=== PATIENT | male | born 1970 | race African-American/Black ===

== ENCOUNTER 2019-07-10 22:12 | Emergency (ER) | payer OTHER ==
[2019-07-10 22:22] VITALS: TEMP 97.9; BMI 36.2
[2019-07-10] MEDS ORDERED: IBUPROFEN 600 MG TABLET (FP) PO ONE (23:45)
[2019-07-11] MEDS ORDERED: IBUPROFEN 600 MG TABLET (FP) PO ONE (00:15)
[2019-07-11] MEDS ORDERED: SULFAMETHOXAZOLE/TRIMETHOPRIM 800MG/160MG D.S. TABLET PO ONE (00:49)
--- NOTE | 2019-07-11 00:56 | PDOC ---
History of Present Illness - General Chief Complaint: Edema Stated Complaint: LEFT FOOT LACERATION Time Seen by Provider: 07/10/19 23:38 History Source: Patient Exam Limitations: No Limitations Past History - Past Medical History Allergies/Adverse Reactions: Allergies Allergy/AdvReac Type Severity Reaction Status Date / Time No Known Allergies Allergy Verified 07/10/19 22:21 Home Medications: Ambulatory Orders Sulfamethoxazole/Trimethoprim [Bactrim Ds -] 1 tab PO BID #13 tablet 07/11/19 COPD: No Other medical history: MRSA 2002 - Immunization History Immunization Up to Date: Yes - Psycho Social/Smoking Cessation Hx Smoking History: Current every day smoker Have you smoked in the past 12 months: No Information on smoking cessation initiated: No Hx Alcohol Use: Yes (VODKA) Drug/Substance Use Hx: Yes (MARIJUANA, ECTASY) *Physical Exam - Vital Signs Last Vital Signs Temp Pulse Resp BP Pulse Ox 97.9 F 114 H 20 127/81 96 07/10/19 22:15 07/10/19 22:15 07/10/19 22:15 07/10/19 22:15 07/10/19 22:15 - Physical Exam General Appearance: No: Apparent Distress Extremity: positive: Other (+L heel swelling, superficial healed 1 cm cut along L heel, no drainage, no erythema, no streaking, no crepitus, no abscess) Integumentary: positive: Normal Color. negative: Erythema, Ecchymosis, Bruising Neurologic: positive: Alert ED Treatment Course - RADIOLOGY Radiology Studies Ordered: Category Date Time Status FOOT-LEFT [RAD] Stat Radiology 07/10/19 23:45 Taken - Medications Given in the ED: ED Medications Discontinued Medications Generic Name Dose Route Start Last Admin Trade Name Freq PRN Reason Stop Dose Admin Ibuprofen 600 mg 07/10/19 23:45 07/11/19 00:38 Motrin - PO 07/10/19 23:46 600 mg ONCE ONE Administration Medical Decision Making - Medical Decision Making 48 y/o M with no sig pmh presents with swelling of L heel over the past week. 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 Patient states he was wearing shoes. Denies fever, discharge, changes in skin color. Mentions hx of MRSA infection in the past L foot xray - ?circular density noted along L heel; ?FB Xray sent to imaging transmission specialist but it was read as negative Will start on Bactrim and refer to podiatry 07/11/19 00:52 Discharge - Discharge Information Problems reviewed: Yes Clinical Impression/Diagnosis: Foot swelling Condition: Stable Disposition: HOME - Admission No - Additional Discharge Information Prescriptions: Sulfamethoxazole/Trimethoprim [Bactrim Ds -] 1 tab PO BID #13 tablet Prescription Drug Monitoring Program (I-STOP) results: I-STOP not reviewed - Follow up/Referral Referrals: Dewey Pina MD [Staff Physician] - Call tomorrow Colin Tobin MD [Staff Physician] - Call tomorrow - Patient Discharge Instructions Additional Instructions: Thank you for choosing [facility]. It was a pleasure taking care of you. You may take Motrin 600 mg every 6 hours by mouth as needed for mild to moderate pain. Take Motrin with food. You were also started on antibiotics You were referred to registration officer/orthopedic doctor for further evaluation Return to the Emergency Department if your symptoms worsen or persist, you have fever, redness, purulent drainage, streaking or other concerning symptoms. - Post Discharge Activity
[2019-07-11] MEDS ORDERED: SULFAMETHOXAZOLE/TRIMETHOPRIM 800MG/160MG D.S. TABLET ONE (01:11)
[2019-07-11 01:27] VITALS: BP 131/83; PULSE 102
== END 2019-07-11 01:20 | disposition home or self-care (01) ==
LOC: JER 22:12
DX: S99.822A Other specified injuries of left foot, initial encounter (principal); M79.89 Other specified soft tissue disorders; X58.XXXA Exposure to other specified factors, initial encounter; Y93.H3 Activity, building and construction; Y92.89 Other specified places as the place of occurrence of the external cause; Y99.8 Other external cause status; Z86.14 Personal history of Methicillin resistant Staphylococcus aureus infection
CPT/HCPCS: 73630-TC-LT; 99282-25

== ENCOUNTER 2020-12-07 21:26 | Emergency (ER) | payer OTHER ==
[2020-12-07 21:34] VITALS: BP 166/96; PULSE 87; TEMP 97.2; BMI 30.7
[2020-12-07] MEDS ORDERED: FLUORESCEIN NA 1 EA STRIP ONE (21:39)
[2020-12-07] MEDS ORDERED: TETRACAINE 0.5% OPHTH SOLN 2 ML BOTTLE ONE ×2 (21:39→22:22)
[2020-12-07] MEDS ORDERED: FLUORESCEIN NA 1 EA STRIP OD ONE (22:03)
[2020-12-07] MEDS ORDERED: TETRACAINE 0.5% OPHTH SOLN 2 ML BOTTLE OU ONE ×2 (22:04→22:19)
[2020-12-07] MEDS ORDERED: ERYTHROMYCIN 0.5% OPHTHALMIC OINTMENT 3.5 GM TUBE OU ONE (22:05)
[2020-12-07] MEDS ORDERED: OCULAR LUBRICANT OPHTHALMIC OINTMENT 7 GM TUBE OU PRN (22:05)
[2020-12-07] MEDS ORDERED: ERYTHROMYCIN 0.5% OPHTHALMIC OINTMENT 3.5 GM TUBE ONE ×2 (22:16→22:29)
== END 2020-12-07 22:33 | disposition home or self-care (01) ==
LOC: JER 21:26
DX: H16.133 Photokeratitis, bilateral (principal)
CPT/HCPCS: 99283-25

== ENCOUNTER 2021-08-05 07:07 | Emergency (ER) | payer OTHER ==
[2021-08-05 07:20] VITALS: BP 144/81; PULSE 88; TEMP 98.4; BMI 32.1
[2021-08-05] MEDS ORDERED: KETOROLAC TROMETHAMINE 60 MG/2 ML VIAL IM ONE (08:23)
[2021-08-05] MEDS ORDERED: CYCLOBENZAPRINE HCL 10 MG TABLET (FP) PO ONE (08:23)
[2021-08-05] MEDS ORDERED: LIDOCAINE 5% TOPICAL PATCH TP ONE (08:23)
[2021-08-05] MEDS ORDERED: LIDOCAINE 5% TOPICAL PATCH ONE ×2 (08:31→08:33)
[2021-08-05] MEDS ORDERED: KETOROLAC TROMETHAMINE 30 MG/1 ML VIAL ONE ×2 (08:32→08:33)
[2021-08-05] MEDS ORDERED: CYCLOBENZAPRINE HCL 10 MG TABLET (FP) ONE ×2 (08:32→08:33)
== END 2021-08-05 08:46 | disposition home or self-care (01) ==
LOC: JERFT 07:07 → JER 07:07 → JERFT 08:46
PROC: 3E0233Z Introduction of Anti-inflammatory into Muscle, Percutaneous Approach (ICD-10-PCS; principal; 2021-08-05)
DX: M54.50 Low back pain, unspecified (principal)
CPT/HCPCS: 72100-TC-FY; 99284-25

== ENCOUNTER 2023-09-12 16:10 | Inpatient (IN) | payer OTHER ==
[2023-09-12 16:57] VITALS: BMI 33.5
[2023-09-12] MEDS ORDERED: guaiFENesin 600 MG TABLET.ER (FP) PO PRN (18:54)
[2023-09-12] MEDS ORDERED: MAGNESIUM HYDROX 2400MG/30ML ORAL SUSPENSION 30 ML CUP PO PRN (18:54)
[2023-09-12] MEDS ORDERED: BENZONATATE 200 MG CAPSULE PO PRN (18:54)
[2023-09-12] MEDS ORDERED: BENZOCAINE/MENTHOL (CHLORASEPTIC ) LOZENGE MM PRN (18:54)
[2023-09-12] MEDS ORDERED: DICYCLOMINE HCL 10 MG CAPSULE PO PRN (18:54)
[2023-09-12] MEDS ORDERED: hydrOXYzine PAMOATE 25 MG CAPSULE (FP) PO PRN (18:54)
[2023-09-12] MEDS ORDERED: POLYETHYLENE GLYCOL (HEALTHYLAX) 3350 17 GM PACKET PO PRN (18:54)
[2023-09-12] MEDS ORDERED: ACETAMINOPHEN 325 MG TABLET (FP) PO PRN (18:54)
[2023-09-12] MEDS ORDERED: NALOXONE HCL 0.4 MG/ML VIAL IM PRN (18:54)
[2023-09-12] MEDS ORDERED: NALOXONE HCL (KLOXXADO) 8 MG SPRAY NS PRN (18:54)
[2023-09-12] MEDS ORDERED: BISMUTH SUBSALICYLATE 524 MG/30 ML PO PRN (18:54)
[2023-09-12] MEDS ORDERED: IBUPROFEN 400 MG TABLET (FP) PO PRN (18:54)
[2023-09-12] MEDS ORDERED: MAG HYDROX/AL HYDROX/SIMETH 30 ML UNIT-DOSE CUP PO PRN (18:54)
[2023-09-12] MEDS ORDERED: LOPERAMIDE HCL 2 MG CAPSULE PO PRN (18:54)
[2023-09-12] MEDS ORDERED: diazePAM 5 MG TABLET ONE (19:23)
[2023-09-12] MEDS: diazePAM 5 MG TABLET PO PRN (19:26)
[2023-09-12] MEDS: diazePAM 5 MG TABLET PO SCH (22:12)
[2023-09-12] MEDS: THIAMINE HCL 100 MG TABLET (FP) PO SCH (22:13)
[2023-09-12] MEDS: METHOCARBAMOL 500 MG TABLET PO PRN (22:13)
[2023-09-12] MEDS: MELATONIN 5 MG TABLETS PO SCH (22:13)
[2023-09-13] MEDS: PRENATAL VITAMINS W/ FOLIC ACID TABLET (FP) PO SCH (10:31)
[2023-09-13] MEDS: ONDANSETRON *ODT* 4 MG TABLET SL PRN (10:39)
[2023-09-13 10:44] LABS: HEMATOCRIT 41.4 % (35.4-49); HEMOGLOBIN 14.2 GM/dL (11.7-16.9); MCHC 34.4 g/dl (32.0-35.9); MEAN CELL VOLUME 101.8 fl (80-96); MEAN PLT VOLUME 9.8 fl (7.5-11.1); PLATELET COUNT 125 10^3/uL (134-434); RBC 4.07 M/mm3 (4.00-5.60); RDW 12.5 % (11.9-15.9); WHITE BLOOD COUNT 3.6 K/mm3 (4.0-10.0)
[2023-09-13] MEDS: amLODIPine BESYLATE 5 MG TABLET (FP) PO SCH (11:56)
[2023-09-13 13:05] LABS: CHLORIDE 108 mmol/L (98-107); POTASSIUM 4.1 mmol/L (3.5-5.1); SODIUM 139 mmol/L (136-145)
[2023-09-13 13:17] LABS: ALBUMIN 3.7 g/dl (3.4-5.0); ANION GAP 7 mmol/L (4-13); CALCIUM 8.2 mg/dL (8.5-10.1); CO2 24 mmol/L (21-32); GLUCOSE,RANDOM 112 mg/dL (74-106)
[2023-09-13 13:18] LABS: BLOOD UREA NITROGEN 17.8 mg/dL (7-18)
[2023-09-13 13:20] LABS: CREATININE 1.1 mg/dL (0.55-1.3); SGPT/ALT 115 U/L (13-61)
[2023-09-13 13:21] LABS: SGOT/AST 89 U/L (15-37)
[2023-09-13 13:22] LABS: BILIRUBIN,TOTAL 1.9 mg/dL (0.2-1); TOT PROT 6.9 g/dl (6.4-8.2)
[2023-09-13 13:23] LABS: ALK PHOS 51 U/L (45-117)
[2023-09-13] MEDS: IBUPROFEN 600 MG TABLET (FP) PO PRN (17:51)
[2023-09-13] MEDS: SUVOREXANT 10 MG TABLET PO PRN (22:39)
[2023-09-14] MEDS: diazePAM 5 MG TABLET PO SCH (06:08)
[2023-09-14 09:51] VITALS: BP 149/82; PULSE 81; RESP 20; TEMP 97.3
[2023-09-15] MEDS ORDERED: diazePAM 5 MG TABLET PO SCH (06:00)
[2023-09-16] MEDS ORDERED: diazePAM 5 MG TABLET PO ONE (06:00)
== END 2023-09-14 09:50 | disposition left against medical advice (07) | DRG 770 ==
LOC: YASAS 16:10 → Y6N 20:10
PROVIDERS: ADMIT Allergy & Immunology; ATTEND Surgery
PROC: HZ2ZZZZ Detoxification Services for Substance Abuse Treatment (ICD-10-PCS; principal; 2023-09-12)
DX: F10.230 Alcohol dependence with withdrawal, uncomplicated (principal); F12.20 Cannabis dependence, uncomplicated; F10.282 Alcohol dependence with alcohol-induced sleep disorder; F10.24 Alcohol dependence with alcohol-induced mood disorder; I10 Essential (primary) hypertension; K21.9 Gastro-esophageal reflux disease without esophagitis; M17.0 Bilateral primary osteoarthritis of knee; M54.50 Low back pain, unspecified; G89.29 Other chronic pain; R56.9 Unspecified convulsions; R73.9 Hyperglycemia, unspecified; Z28.310 Unvaccinated for COVID-19; Z28.9 Immunization not carried out for unspecified reason
CPT/HCPCS: 36415; 80053; 80305; 80307; 85027; 86780; 87635; 93005; 93010; Q0162